=== PATIENT | female | born 1990 | race African-American/Black ===

== ENCOUNTER 2016-11-15 12:46 | Emergency (ER) | payer OTHER ==
[~2016-11-15] VITALS: Ht 172.7 cm; Wt 60.0 kg
[~2016-11-15 12:46] MED LIST: CYCL5TAB PO; NAPR-576 PO
[2016-11-15 12:47] VITALS: BP 137/83; PULSE 72; RESP 20; TEMP 98.2; O2SAT 100
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
[2016-11-15] MEDS ORDERED: IBUP-232 PO (15:29)
[2016-11-15] MEDS ORDERED: CYCL1TAB29 PO (15:29)
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
[2016-11-15] MEDS ORDERED: IBUPROFEN 600 MG TAB PO ONE (15:30)
[2016-11-15] MEDS ORDERED: CYCLOBENZAPRINE HCL 10 MG TAB PO ONE (15:30)
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
== END 2016-11-15 16:00 | disposition home or self-care (01) ==
LOC: NEPD 12:46
DX: M54.9 Dorsalgia, unspecified (principal); M54.2 Cervicalgia; M25.511 Pain in right shoulder; R51 Headache; M25.561 Pain in right knee; V43.62XA Car passenger injured in collision with other type car in traffic accident, initial encounter
CPT/HCPCS: 72072; 99283

== ENCOUNTER 2017-04-06 18:52 | Emergency (ER) | payer OTHER ==
[~2017-04-06 18:52] MED LIST changes: +CYCL10TA PO; -CYCL5TAB PO; +IBUP-232 PO; -NAPR-576 PO
--- NOTE | 2017-04-06 20:49 | PD ---
HPI Chief Complaint Recent complaints of shaking badly and having abdominal pain Date Seen: Apr 06, 2017 Time Seen: 20:30 Travel History International Travel<30 Days: No Contact w/Intl Traveler<30Days: No Known Affected Area: No History of Present Illness HPI Patient is a 26-year-old black female who is now approximately 18 weeks but without any real care except for an ultrasound she had done at a facility outside this hospital here in town. Her EDC by that earlier ultrasound was 09/06/17, an ultrasound done tonight here in [facility] ED is consistent with that with an EDC of 09/09/17, she complains of shaking badly when she was at work today she tried S Shaking and the start hurting in her upper abdomen epigastric area and not down low in the pelvis or below the umbilicus. Denies bleeding or leakage of fluid. Weeks Gestation: 18 Para: 0 : 1 Last Menstrual Period: Apr 06, 2017 History Social History Alcohol Use: No Tobacco Use: No Substance Abuse: No Allergies-Medications (Allergen,Severity, Reaction): Coded Allergies: No Known Allergies (Unverified , 11/15/16) Home Meds Active Scripts Ibuprofen (Ibuprofen) 600 Mg Tab, 600 MG PO Q8H for PAIN, #12 TAB 0 Refills Prov:Ella Cannon MD 11/15/16 Cyclobenzaprine (Flexeril) 10 Mg Tab, 10 MG PO TID for Muscle Spasm, #10 TAB 0 Refills Prov:Ella Cannon MD 11/15/16 Review of Systems General / Constitutional: No: Fever, Weight Gain, Chills, Other Eyes: No: Diploplia, Blurred Vision, Visual changes, Pain, Photophobia HENT: No: Headaches, Vertigo, Lightheadedness Cardiovascular: No: Irregular Rhythm, Chest Pain or Discomfort, Palpitations, Tachycardia, Syncope, Varicosities, Edema, Cyanosis Respiratory: No: Cough, Short of Breath, Other Gastrointestinal: Abdominal Pain, No: Nausea, Vomiting, Diarrhea Genitourinary: No: Decreased Urinary Output, Oliguria Musculoskeletal: No: Limited ROM, Weakness, Cramping, Edema, Pain Skin: No Rash, No Itching, No Dryness, No Lumps, No Change in Pigmentation, No Change in Nails, No Alopecia, No Lesions Neurologic: No: Weakness, Dizziness, Syncope, Focal Abnormalities, Coordination Problem, Headache, Slurred Speech, Seizures Psychiatric: No: Depression, Suicidal Ideations, Homicidal Ideation Endocrine: No: Heat Intolerance, Cold Intolerance, Polydipsia, Polyuria, Other Physical Exam Narrative GENERAL: Well-nourished, well-developed patient. SKIN: Warm and dry. HEAD: Normocephalic and atraumatic. EYES: No scleral icterus. No injection or drainage. ENT: No nasal drainage noted. Mucous membranes pink. Airway patent. NECK: Supple, trachea midline. No JVD. CARDIOVASCULAR: Regular rate and rhythm without murmurs, gallops, or rubs. RESPIRATORY: Breath sounds equal bilaterally. No accessory muscle use. BREASTS: Bilateral exam showed no masses , no retractions, no nipple discharge. ABDOMEN/GI: Abdomen soft, non-tender, bowel sounds present, no rebound, no guarding Gravid to [17-18-] weeks size Fundal Height: [-Below umbilicus] GENITOURINARY: External Genitalia: intact and normal in appearance BUS glands: [-] Cervix: [Posterior-] Dilatation: [Closed-] Effacement: [-thick] Station: [-3] Presentation: [breech-] Membranes: [intact ] FHT's:130s EXTREMITIES: No cyanosis or edema. BACK: Nontender without obvious deformity. No CVA tenderness. NEUROLOGICAL: Awake and alert. Motor and sensory grossly within normal limits. Five out of 5 muscle strength in all muscle groups. Normal speech. Data Data Orders Orders Ob Poc Ultrasound (04/06/17 ) Labs OB ultrasound done at the bedside at night. She is a single intrauterine at 17 weeks 5 day size with an NADIA of 09/10/27 , is adequate amniotic fluid volume ,baby is in a breech presentation and very active, the placenta is anterior and low-lying to the point of being a marginal previa. Normal growth parameters and anatomy scan within normal limits normal cardiac motion MDM Interpretation(s) This patient is 26-year-old black female at 18 weeks who currently is not in the pre- care system did have an ultrasound done earlier in we gave her a due date 09/06/17 and that a NADIA is accurate as tony's ultrasound was consistent with same, likely she does not seem to be shaking at all she is comfortable is a little bit of discomfort when you palpate the abdomen but overall exam was within normal limits. However she also states that she doesn't eat she has no appetite she doesn't want to eat she's not throwing up she just doesn't want Eat, certainly this could cause to be dehydrated and in just lack of food over a period of time could make her feel shaky Plan Planned hydrate the patient with a liter fluid and this continued to have pain may give pain medication at this time Tylenol would be fine here and as an outpatient, she needs to increase her rest if she is uncomfortable of STDs work that we can provide that, she should increase her oral fluids at home use Tylenol as needed heating pad on low on her tummy or her back is fine. She is given the photographs of the baby tony as well as the copy of the report from our ultrasound to take with her appointment I think is April 26 Diagnosis Diagnosis: Primary Impression: 18 weeks gestation of Additional Impressions: Shakiness Abdominal pain during in second trimester Disposition: 01 DISCHARGE HOME Condition: Stable Ramana Denise II, MD Apr 06, 2017 20:49
== END 2017-04-06 21:49 | disposition home or self-care (01) ==
LOC: HOBED 18:52
DX: O26.892 Other specified pregnancy related conditions, second trimester (principal); R10.9 Unspecified abdominal pain; Z3A.18 18 weeks gestation of pregnancy
CPT/HCPCS: 76815

== ENCOUNTER 2017-09-01 21:37 | Inpatient (IN) | payer OTHER ==
[~2017-09-01] VITALS: Ht 172.7 cm; Wt 73.0 kg
[2017-09-01 22:00] VITALS: BP 110/74; PULSE 74
[2017-09-01] MEDS ORDERED: LACTATED RINGER'S 1000 ML INJ 1,000 ML IV PRN (22:17)
[2017-09-01] MEDS: LACTATED RINGER'S 1000 ML INJ 1,000 ML IV SCH (22:17)
--- NOTE | 2017-09-01 22:17 | HHI.PR ---
TALENT ACQUISITION LEAD Note Note HPI HPI Chief Complaint LOF Date Seen: Sep 01, 2017 Time Seen: 22:00 Travel History International Travel<30 Days: No Contact w/Intl Traveler<30Days: No Known Affected Area: No History of Present Illness HPI Pt is a 26y/o G1 @ 39.2wks. She has PNC at [facility]. She presents for evaluation of ?LOF. She reports a large gush of fluid at 9pm and back pain since. She denies VB or ctx. +FM. Weeks Gestation: 39 Para: 0 : 1 History (Limited) History Past Medical History Medical History: Denies Significant Hx Obstetric History Obstetric History 1. current, reports she failed 1hr glucola but never completed 3hr Past Surgical History Surgical History: No Previous Surgery Family History Family History: Negative Social History Alcohol Use: No Tobacco Use: No Substance Abuse: No Allergies-Medications Allergies-Medications (Allergen,Severity, Reaction): Coded Allergies: No Known Allergies (Unverified Adverse Reaction, Unknown, 06/20/17) Narrative Medication PNVs ROS Review of Systems Except as stated in HPI: all other systems reviewed are Neg Physical Exam Physical Exam Narrative General: well developed, well nourished, no acute distress HEENT: normocephalic atraumatic, extraocular movements intact, neck supple Abdomen: soft, gravid, nontender, nondistended Uterus: fundus term Extremities: full range of motion Skin: normal coloration, no rashes, no suspicious skin lesions noted Neurologic: cranial nerves 2-12 grossly intact, normal muscle tone, normal gait Psychiatric: normal mood and affect, appropriate FHTs: 13-s, +accels, no decels, moderate variability, reactive [place]: irregular ctx Cvx: 3/100/-2, amnisure + Data Data Data Vital Signs Reviewed: Yes Orders Orders Vital Signs (Adult) .ON ADMISSION (09/01/17 22:00) ^ Labor Status (09/01/17 22:00) ^ Non Stress Test (09/01/17 22:00) Pamg-1 Test .ONCE (09/01/17 22:00) Group B Strep: Positive MDM MDM Plan 26y/o G1 @ 39.2wks with ROM. -- admit to L&D -- pitocin augmentation -- CEFM, CLD, epidural/hoyos PRN -- PCN for GBS+ Diagnosis Diagnosis: Primary Impression: 39 weeks gestation of Additional Impressions: Leakage, amniotic fluid GBS (group B Streptococcus carrier), +RV culture, currently Yoanna Mendoza MD Sep 01, 2017 22:17 Yoanna Mendoza MD Sep 01, 2017 22:17
[2017-09-01] MEDS ORDERED: LIDOCAINE HCL 1% 50 ML VIAL I-DERMAL PRN (22:30)
[2017-09-01] MEDS ORDERED: SODIUM CHLORID 0.9% 500 ML INJ 500 ML IV PRN (22:30)
[2017-09-01] MEDS ORDERED: MINERAL OIL 10 ML VIAL TOPICAL PRN (22:30)
[2017-09-01] MEDS ORDERED: OXYTOCIN 30 UNITS-500ML PREMIX 500 ML IV PRN (22:30)
[2017-09-01] MEDS ORDERED: LIDOCAINE HCL 1% 50 ML VIAL INFIL PRN (22:30)
[2017-09-01] MEDS ORDERED: ONDANSETRON HCL 4 MG/2 ML VIAL IV PUSH PRN (22:30)
[2017-09-01] MEDS ORDERED: OXYTOCIN 30 UNITS-500ML PREMIX 500 ML IV ONE (22:30)
[2017-09-01] MEDS ORDERED: CITRIC ACID-SODIUM CITRATE LIQ 30 ML UDC PO SCH (22:30)
[2017-09-01] MEDS ORDERED: SODIUM CHLOR 0.9% 1000 ML INJ 1,000 ML IV PRN (22:37)
[2017-09-01] MEDS ORDERED: PENICILLIN G POTASSIUM INJ 5,000,000 UNITS in SODIUM CHLORIDE 0.9% INJ 100 ML IV ONE (23:00)
[2017-09-01 23:13] VITALS: BP 116/70; PULSE 79
[2017-09-01 23:37] VITALS: BP 118/73; PULSE 71
[2017-09-01 23:41] LABS: AUTOMATED NEUTROPHIL # 8.9 TH/MM3 (1.8-7.7); BASOPHIL % 0.4 % (0.0-2.0); EOSINOPHIL # 0.1 TH/MM3 (0-0.4); EOSINOPHIL % 0.9 % (0.0-4.0); HEMOGLOBIN 11.6 GM/DL (11.6-15.3); LYMPH % 19.6 % (9.0-44.0); LYMPHOCYTE # 2.5 TH/MM3 (1.0-4.8); MEAN CELL VOLUME 99.5 FL (80.0-100.0); MEAN CORPUSCULAR HGB CONC 34.2 % (32.0-36.0); MONO % 9.5 % (0.0-8.0); MONOCYTE # 1.2 TH/MM3 (0-0.9); NEUT % 69.6 % (16.0-70.0); PLATELET COUNT 278 TH/MM3 (150-450); RED BLOOD COUNT 3.42 MIL/MM3 (4.00-5.30); RED CELL DISTRIBUTION WIDTH 12.2 % (11.6-17.2); WHITE BLOOD COUNT 12.8 TH/MM3 (4.0-11.0)
[2017-09-01 23:42] LABS: BILIRUBIN, URINE NEG (NEG); BLOOD, URINE NEG (NEG); GLUCOSE,URINE NEG (NEG); KETONE, URINE NEG (NEG); MUCUS URINE FEW /lpf (OCC); NITRITE,URINE NEG (NEG); RENAL EPITHELIAL CELLS <1 /hpf; SQUAMOUS EPITHELIAL CELL URINE 2 /hpf (0-5); TRANSITIONAL EPI CELLS, URINE <1 /hpf; URINE COLOR YELLOW (YELLW/STRAW); URINE LEUKOCYTE ESTERASE NEG (NEG)
[2017-09-01] MEDS ORDERED: PRENTAB7 (23:46)
[2017-09-02] VITALS (36 sets, daily range): BP systolic 100–125; BP diastolic 59–91; PULSE 58–81; RESP 16–20; TEMP 97.6–98.4; O2SAT 99
[2017-09-02] MEDS ORDERED: PENICILLIN G POTASSIUM INJ 2,500,000 UNITS in SODIUM CHLORIDE 0.9% INJ 100 ML IV SCH (03:00)
[2017-09-02] MEDS: ceFAZolin 1,000 MG/NS 100 ML IV SCH ×4 (07:18→11:00)
[2017-09-02] MEDS: LACTATED RINGER'S 1000 ML INJ 1,000 ML IV SCH (07:18)
[2017-09-02] MEDS ORDERED: PROMETHAZINE INJ 25 MG/ML VIAL IM ONE (07:30)
--- NOTE | 2017-09-02 08:45 | PD.LABORPN ---
Subjective Subjective 26y/o G1 @ 39/3wks followed by CFW who p/w evaluation for LOF w/report of a large gush of fluid at 9pm and back pain since. FHT w/BL 130, reactive, moderate and no decels. Objective Vital Signs Vital Signs Date Time Temp Pulse Resp B/P (MAP) Pulse Ox O2 Delivery O2 Flow Rate FiO2 09/02/17 08:11 72 107/83 (91) 09/02/17 08:10 16 09/02/17 07:14 98.3 18 09/02/17 07:14 81 125/91 (102) 09/02/17 06:30 18 09/02/17 05:21 97.8 16 09/02/17 05:18 64 107/73 (84) 09/02/17 05:08 16 09/02/17 04:36 98.0 09/02/17 04:35 18 09/02/17 04:14 16 09/02/17 04:00 97.8 09/02/17 03:34 16 09/02/17 03:13 18 09/02/17 02:45 16 09/02/17 02:15 16 09/02/17 02:15 98.0 09/02/17 02:02 58 113/67 (82) 09/02/17 01:45 16 09/02/17 01:15 16 09/02/17 01:13 65 108/66 (80) Objective Pelvic Exam: Cervix: open Dilatation: 5 Effacement: 80 Station: -2 Presentation: vtx Membranes: ruptured, but still a bulging bag Uterine Contractions: regular, q2-3mins FHT's: Category: 1 Baseline: 130 Reactive: yes Variability: moderate Decels: absent Weeks Gestation: 39 Assessment/Plan Assessment and Plan 26YO at 39/3 actively laboring w/Cervix 5/80/-2 and FHT BL 130, reactive, moderate, no decels IUP -[place] and monitor -Pitocin titrate per protocol -Pt refusing epidural at this time, but in pain -Refusing amniotomy -Cervical check q2h Pt dw Skip Uriostegui MD R1 Sep 02, 2017 08:45
[2017-09-02] MEDS ORDERED: LIDOCAINE HCL 1% PF 30 ML VIAL ONE (11:41)
[2017-09-02] MEDS ORDERED: ONDANSETRON ODT 4 MG TAB PO PRN (12:30)
[2017-09-02] MEDS ORDERED: BENZOCAINE 20% TOPICAL SPRAY 60 ML CAN TOPICAL PRN (12:30)
[2017-09-02] MEDS ORDERED: OXYTOCIN 30 UNITS-500ML PREMIX 500 ML IV SCH (12:30)
[2017-09-02] MEDS ORDERED: WITCH HAZEL 50%/GLYCERIN 12.5% 40 PAD JAR TOPICAL PRN (12:30)
[2017-09-02] MEDS ORDERED: SODIUM CHLORIDE 0.9% FLUSH 10 ML FLUSH IV FLUSH PRN (12:30)
[2017-09-02] MEDS ORDERED: DOCUSATE SODIUM 50 MG/SENNA 8.6 MG TAB PO PRN (12:30)
--- NOTE | 2017-09-02 12:48 | PD.OB.DELI ---
Weeks gestation: 39 Anesthesia: None Episiotomy: None Vaginal Delivery: Normal, Spontaneous Presentation: Occiput anterior Nuchal Cord: x1 Delayed cord clamping (45 sec): Yes : Male, Single Delivery date: Sep 02, 2017 Delivery time: 11:38 One Minute : 8 Five Minute : 8 Weight: 3493g Placenta: Spontaneous delivery, Intact, 3 vessel cord Laceration: 3 deg (partial 3rd degree tear with part of the external anal schpincter intact), Involving anal sphincter (partial (2/3) tear external anal sphincter) Repair: Chromic interrupted Estimated blood loss: 200cc Additional Information Delivery performed by Dr Higgins and assisted by Dr Denise. Male infant delivered 1138AM with 3rd degree perineal laceration with 2/3 thickness tear of external anal sphincter and right side anterior periurethral full epidermal thickness tear. Pt given local lidocaine injections for hemostasis and pain control. Both lacerations repaired with chromic running; anal sphincter tear secured with four vicryl interrupted sutures. Dr Denise supervised laceration repair while Dr Higgins was primary performer. Skip Higgins MD R1 Sep 02, 2017 12:48
[2017-09-02] MEDS: ACETAMINOPHEN 325 MG TAB PO PRN ×2 (14:25→21:29)
[2017-09-02] MEDS: IBUPROFEN 800 MG TAB PO PRN ×2 (14:25→21:30)
[2017-09-02] MEDS ORDERED: DIPHTH/TETANUS/ACEL PERTUSSIS (BOOSTER) 0.5 ML VIAL/PFS IM ONE (16:00)
[2017-09-02] MEDS ORDERED: MEASLES, MUMPS, RUBELLA VACCINE 0.5 ML VIAL SQ ONE (16:00)
[2017-09-02] MEDS ORDERED: SODIUM CHLORIDE 0.9% FLUSH 10 ML FLUSH IV FLUSH SCH (21:00)
[2017-09-02] MEDS ORDERED: ZOLPIDEM TARTRATE 5 MG TAB PO PRN (21:00)
[2017-09-03] MEDS: oxyCODONE/ACETAMINOPHEN 5 MG/325 MG TAB PO PRN ×3 (00:47→08:13)
[2017-09-03] MEDS: IBUPROFEN 800 MG TAB PO PRN ×2 (04:29→20:10)
[2017-09-03 06:00] VITALS: BP 114/58; PULSE 62; RESP 18; TEMP 98.4; O2SAT 98
[2017-09-03 08:15] VITALS: BP 136/75; PULSE 57; RESP 16; TEMP 97.9
--- NOTE | 2017-09-03 09:40 | HHI.OB ---
Subjective Remarks 26 year old female s/p at 39 wks gestation, PPD 1. AFVSS. Patient reports she is feeling well. Bleeding is decreasing and pain is well- controlled. She is formula feeding and bonding well with baby. Ambulating without difficulties. She is tolerating a diet without nausea or vomiting. She has not had a bowel movement. She has passed gas. Denies chest pain, dysuria, shortness of breath, or calf pain. Objective Vitals/I&O Vital Signs Date Time Temp Pulse Resp B/P (MAP) Pulse Ox O2 Delivery O2 Flow Rate FiO2 09/03/17 06:00 98.4 62 18 114/58 (76) 98 09/02/17 20:00 67 18 100/59 (73) 09/02/17 20:00 98.4 99 09/02/17 13:15 98.4 71 20 111/60 (77) 09/02/17 12:55 66 116/69 (85) 09/02/17 12:54 18 09/02/17 12:39 98.4 09/02/17 12:39 18 09/02/17 12:30 74 117/59 (78) 09/02/17 12:30 18 09/02/17 12:15 75 114/67 (83) 09/02/17 12:11 18 09/02/17 12:10 81 116/73 (87) 09/02/17 11:04 67 113/79 (90) 09/02/17 11:03 97.6 18 09/02/17 10:13 74 116/84 (95) 09/02/17 10:12 18 Objective Remarks GENERAL: Well-nourished, well-developed patient. CARDIOVASCULAR: Regular rate and rhythm without murmurs, gallops, or rubs. RESPIRATORY: Breath sounds equal bilaterally. No accessory muscle use. ABDOMEN/GI: Abdomen soft, non-tender. Fundus: Firm, non-tender at umbilicus. GENITOURINARY: Light to moderate bleeding. EXTREMITIES: No cyanosis or edema, non-tender, without signs of DVT. Medications and IVs Current Medications Medications (Trade) Dose Ordered Sig/Joy Route Start Time Stop Time Status Last Admin (Xylocaine 1% Inj (50 ml)) 0.1 ml UNSCH X1 PRN I-DERMAL 09/01/17 22:30 09/04/17 22:29 (Bicitra Liq) 30 ml [employer]EVERAGE PO 09/01/17 22:30 09/05/17 22:29 (fentaNYL INJ) 50 mcg Q1H PRN IV PUSH 09/01/17 22:30 (fentaNYL INJ) 100 mcg Q1H PRN IV PUSH 09/01/17 22:30 09/02/17 10:11 (Xylocaine 1% Inj (50 ml)) 10 ml UNSCH X1 PRN INFIL 09/01/17 22:30 09/03/17 22:29 (Muri-Lube Oil) 10 ml UNSCH PRN TOPICAL 09/01/17 22:30 Cefazolin Sodium 1000 mg/Sodium Chloride 100 ml @ 200 mls/hr Q4H IV 09/02/17 07:00 09/02/17 07:18 (NS Flush) 2 ml BID IV FLUSH 09/02/17 21:00 (NS Flush) 2 ml UNSCH PRN IV FLUSH 09/02/17 12:30 (Tylenol) 650 mg Q4H PRN PO 09/02/17 12:30 09/02/17 21:29 (Motrin) 800 mg Q8H PRN PO 09/02/17 12:30 09/03/17 04:29 (Percocet 5-325 Mg) 1 tab Q4H PRN PO 09/02/17 12:30 09/03/17 08:13 (Americaine 20% Top Spr) 1 spray Q4H PRN TOPICAL 09/02/17 12:30 09/03/17 00:46 (Tucks Pads) 1 applic QID PRN TOPICAL 09/02/17 12:30 09/03/17 00:46 (Ghazal-Colace) 2 tab Q12H PRN PO 09/02/17 12:30 09/03/17 00:46 (Ambien) 5 mg HS PRN PO 09/02/17 21:00 (Mag-Al Plus Susp Liq) 15 ml Q8H PRN PO 09/02/17 12:30 (Zofran Odt) 4 mg Q6H PRN PO 09/02/17 12:30 Assessment/Plan Problem List: (1) Normal vaginal delivery ICD Codes: O80 - Encounter for full-term uncomplicated delivery Assessment and Plan 26 yo female s/p , PPD 1 - AFVSS - Continue routine care - Motrin PRN pain - Encourage OOB - Pelvic rest x 6 wks - Contraception: exclusive WSW, considering OCP for menstrual regulation, will f /u - Anticipate D/C 09/04 Margarito Govea MD R2 Sep 03, 2017 09:40
[2017-09-03] MEDS ORDERED: IBUP1TAB7 PO (09:42)
--- NOTE | 2017-09-03 09:42 | HHI.DCPOC ---
Discharge Care Plan Diagnosis: (1) Normal vaginal delivery Report Symptoms to Your Doctor -Temperature above 100.5 degrees -Redness, of incision or excessive or foul smelling drainage -Unusual pain or calf pain -Increased vaginal bleeding -Painful or difficulty urinating -Feelings of extreme sadness or anxiety after 2 weeks Goals to Promote Your Health * To prevent worsening of your condition and complications * To maintain your health at the optimal level Directions to Meet Your Goals Take your medications as prescribed Follow your dietary instruction Follow activity as directed Ensure plenty of rest for recovery Drink fluids for hydration Keep your appointments as scheduled Take your immunizations and boosters as scheduled If your symptoms worsen call your PCP, if no PCP go to Urgent Care Center or Emergency Room Smoking is Dangerous to Your Health. Avoid second hand smoke Call the 24-hour crisis hotline for domestic abuse at Margarito Govea MD R2 Sep 03, 2017 09:42
[2017-09-03 12:19] VITALS: BP 110/68; PULSE 65; O2SAT 99
[2017-09-03] MEDS ORDERED: CITRIC ACID-SODIUM CITRATE LIQ 30 ML UDC PO ONE (13:15)
[2017-09-03] MEDS: ALUMINUM/MAGNESIUM/SIMETH 30 ML CUP PO PRN (16:09)
--- NOTE | 2017-09-03 16:32 | EKG ---
Date Performed: 09/03/2017 Time Performed: 12:38:51 PTAGE: 26 years EKG: Sinus rhythm NORMAL ECG NO PREVIOUS TRACING DOCTOR: Radha Suarez Interpretating Date/Time 09/03/2017 16:30:25
[2017-09-03 20:00] VITALS: BP 109/69; PULSE 70; RESP 18; TEMP 98.5; O2SAT 96
[2017-09-04 00:12] VITALS: BP 109/71; PULSE 62; RESP 16; TEMP 98.1; O2SAT 100
[2017-09-04] MEDS: ALUMINUM/MAGNESIUM/SIMETH 30 ML CUP PO PRN ×2 (00:28→12:36)
[2017-09-04 03:15] VITALS: BP 114/71; PULSE 66; RESP 16; O2SAT 100
[2017-09-04] MEDS ORDERED: ONDA4TAB7 PO (07:56)
[2017-09-04] MEDS ORDERED: NORE0.354 PO (07:56)
[2017-09-04] MEDS ORDERED: PROMETHAZINE HCL 25 MG TAB PO ONE (08:00)
--- NOTE | 2017-09-04 08:01 | HHI.OB ---
Subjective Remarks 26 year old female s/p at 39 wks gestation, PPD 2. AFVSS. Patient reports she is feeling well. Bleeding is decreasing and pain is well- controlled. She is formula feeding and bonding well with baby. Ambulating without difficulties. She is tolerating a diet but has had some nausea and vomiting incompletely relieved by Zofran. She has not had a bowel movement. She has passed gas. Still has some chest/breast pain and shortness of breath. Yesterday noted same symptoms. Objective Vitals/I&O Vital Signs Date Time Temp Pulse Resp B/P (MAP) Pulse Ox O2 Delivery O2 Flow Rate FiO2 09/04/17 03:15 66 16 114/71 (85) 100 09/04/17 00:12 98.1 62 16 109/71 (84) 100 09/03/17 20:00 98.5 70 18 109/69 (82) 96 09/03/17 12:19 65 110/68 (82) 99 09/03/17 08:15 97.9 57 16 136/75 (95) Objective Remarks GENERAL: Well-nourished, well-developed patient. CARDIOVASCULAR: Regular rate and rhythm without murmurs, gallops, or rubs. RESPIRATORY: Breath sounds equal bilaterally. No accessory muscle use. ABDOMEN/GI: Abdomen soft, non-tender. Fundus: Firm, moderately tender at 2 cm below umbilicus. GENITOURINARY: Light to moderate bleeding. EXTREMITIES: No cyanosis or edema, non-tender, without signs of DVT. Medications and IVs Current Medications Medications (Trade) Dose Ordered Sig/Joy Route Start Time Stop Time Status Last Admin (Xylocaine 1% Inj (50 ml)) 0.1 ml UNSCH X1 PRN I-DERMAL 09/01/17 22:30 09/04/17 22:29 (Bicitra Liq) 30 ml [employer] PO 09/01/17 22:30 09/05/17 22:29 (fentaNYL INJ) 50 mcg Q1H PRN IV PUSH 09/01/17 22:30 (fentaNYL INJ) 100 mcg Q1H PRN IV PUSH 09/01/17 22:30 09/02/17 10:11 (Muri-Lube Oil) 10 ml UNSCH PRN TOPICAL 09/01/17 22:30 Cefazolin Sodium 1000 mg/Sodium Chloride 100 ml @ 200 mls/hr Q4H IV 09/02/17 07:00 09/02/17 07:18 (NS Flush) 2 ml BID IV FLUSH 09/02/17 21:00 (NS Flush) 2 ml UNSCH PRN IV FLUSH 09/02/17 12:30 (Tylenol) 650 mg Q4H PRN PO 09/02/17 12:30 09/02/17 21:29 (Motrin) 800 mg Q8H PRN PO 09/02/17 12:30 09/03/17 20:10 (Percocet 5-325 Mg) 1 tab Q4H PRN PO 09/02/17 12:30 09/03/17 08:13 (Americaine 20% Top Spr) 1 spray Q4H PRN TOPICAL 09/02/17 12:30 09/03/17 00:46 (Tucks Pads) 1 applic QID PRN TOPICAL 09/02/17 12:30 09/03/17 00:46 (Ghazal-Colace) 2 tab Q12H PRN PO 09/02/17 12:30 09/03/17 00:46 (Ambien) 5 mg HS PRN PO 09/02/17 21:00 (Mag-Al Plus Susp Liq) 15 ml Q8H PRN PO 09/02/17 12:30 09/04/17 00:28 (Zofran Odt) 4 mg Q6H PRN PO 09/02/17 12:30 09/03/17 10:51 (Phenergan) 12.5 mg ONCE ONCE PO 09/04/17 08:00 09/04/17 08:01 09/04/17 07:55 Assessment/Plan Problem List: (1) Normal vaginal delivery ICD Codes: O80 - Encounter for full-term uncomplicated delivery Assessment and Plan 26 yo female s/p , PPD 2 - AFVSS - Continue routine care - Motrin PRN pain - Chest pain: EKG normal, not reproducible with applied pressure. Possibly related to breast engorgement from not . Advised ice packs and tight fitting bra. - N/V: Phenergan 12.5 mg PO x1, may repeat dose as needed. Continue Zofran PRN as routinely ordered. - Encourage OOB - Pelvic rest x 6 wks - Contraception: generally exclusive WSW, but requesting OCP for period regulation. Will Rx norethindrone. - Anticipate D/C today PM Margarito Govea MD R2 Sep 04, 2017 08:01
[2017-09-04 09:25] VITALS: BP 109/65; PULSE 62; RESP 16; TEMP 98.8
[2017-09-04] MEDS ORDERED: medroxyPROGESTERone ACETATE SUSP 150 MG/ML SYRINGE IM ONE (11:00)
--- NOTE | 2017-09-04 12:02 | PD.CIRC ---
Circumcision Procedure Note Procedure Date: Sep 04, 2017 Procedure Time: 12:01 Procedure: Circumcision Pre-procedure diagnosis: circumcision Post-procedure diagnosis: circumcision Informed Consent: The risks, benefits, indications, potential complications, and alternatives were explained to the patient/family and informed consent obtained. The baby was brought to the procedure room where a time-out was done to ID the patient and the procedure. Performing Physician: Amador Herrera Anesthesia used: 1% lidocaine injected Type of block: dorsal penile block Device used: Gomco 1.3 Description: The baby was prepped and draped in a sterile fashion. The procedure followed standard technique. The baby tolerated the procedure well without complication. Findings: normal male genitalia Estimated blood loss: minimal Specimen: No Amador Herrera Jr., MD Sep 04, 2017 12:02
== END 2017-09-04 15:18 | disposition home or self-care (01) | DRG 775 ==
LOC: HOBED 21:37 → H2EB 22:18 → H1EA 09-02 13:01
PROVIDERS: ADMIT Obstetrics & Gynecology; ATTEND Obstetrics & Gynecology
PROC: 0DQR0ZZ Repair Anal Sphincter, Open Approach (ICD-10-PCS; principal; 2017-09-02)
PROC: 10E0XZZ Delivery of Products of Conception, External Approach (ICD-10-PCS; 2017-09-02)
DX: O99.824 Streptococcus B carrier state complicating childbirth (principal); O69.81X0 Labor and delivery complicated by cord around neck, without compression, not applicable or unspecified; Z37.0 Single live birth; Z3A.39 39 weeks gestation of pregnancy; O70.20 Third degree perineal laceration during delivery, unspecified; R11.2 Nausea with vomiting, unspecified
CPT/HCPCS: 80307; 81001; 84112; 85025; 85461; 86850; 86900; 86901; 90384; 90715; 93005; J0690; J1050; J2405; J2540; J2550; J2590; J2790; J3010; J7120; Q0169

== ENCOUNTER 2017-09-07 16:00 | Observation (INO) | payer OTHER ==
[~2017-09-07] VITALS: Ht 172.7 cm; Wt 64.8 kg
[~2017-09-07 16:00] MED LIST changes: -CYCL10TA PO; -IBUP-232 PO; +IBUP1TAB7 PO; +NORE0.354 PO; +ONDA4TAB7 PO; +PRENTAB7
[2017-09-07 16:21] VITALS: BP 126/60; PULSE 87; RESP 16; TEMP 98.8; O2SAT 98
--- NOTE | 2017-09-07 17:37 | PD ---
HPI Chief Complaint: GI Complaint Time Seen by Provider: 17:37 Travel History International Travel<30 days: No Contact w/Intl Traveler<30days: No Traveled to known affect area: No History of Present Illness HPI 26-year-old female came to the emergency room with history of intractable nausea and vomiting that has been going on since the of this month. Patient had a normal vaginal delivery on the and says that the nausea and vomiting pretty much started since then. Patient was in the hospital postdelivery for 2 days. The first day the vomiting was not as intense but the second day onwards she has been unable to keep any fluid/water or solids down. She was discharged home on Zofran as per the patient that has not been helpful. Delivery was uneventful. Patient was a GBS positive but had received prophylactic antibiotic. Patient is not breast-feeding currently. She was also discharged home on Motrin but she took the last dose 3 days ago. She has been having vaginal bleeding which is getting better. No history of fever or chills. No history of diarrhea. She does complain of some epigastric pain that gets worse when she is vomiting. No radiation of the pain. This is her first child. Vital signs were stable in triage. [facility] Past Medical History Narrative Medical List of her past medical, surgical, social and family history is reviewed from the nursing note. Social History Alcohol Use: No Tobacco Use: No Substance Use: No Allergies-Medications (Allergen,Severity, Reaction): Coded Allergies: Penicillins (Verified Allergy, Mild, 09/07/17) Comments List of her allergies reviewed from the nursing note. Reported Meds & Prescriptions Reported Meds & Active Scripts Active Macrobid (Nitrofurantoin Monoh/Nitrofur Macro) 100 Mg Cap 100 Mg PO BID 7 Days Phenergan Supp (Promethazine HCl) 12.5 Mg Supp 12.5 Mg RECTAL Q6H PRN Omeprazole 20 Mg Tab 20 Mg PO DAILY Norethindrone 35 (Norethindrone) 0.35 Mg Tab 1 Tab PO DAILY Ondansetron Odt 4 Mg Tab 4 Mg PO Q6H PRN Ibuprofen 800 Mg Tab 800 Mg PO Q8H PRN Reported Vitamins Tablet (Pnv No.95/Ferrous Fum/Folic AC) 28 Mg Iron-800 Mcg Tablet Narrative Medication List of her home medications reviewed from the nursing note. Review of Systems Except as stated in HPI: all other systems reviewed are Neg Gastrointestinal: Positive: Nausea, Vomiting, Abdominal Pain Physical Exam Narrative GENERAL: Awake, alert, moderate distress SKIN: Focused skin assessment warm/dry. HEAD: Atraumatic. Normocephalic. EYES: Pupils equal and round. No scleral icterus. No injection or drainage. ENT: No nasal bleeding or discharge. Dry mucous membrane, coated tongue. NECK: Trachea midline. No JVD. CARDIOVASCULAR: Regular rate and rhythm. No murmur appreciated. RESPIRATORY: No accessory muscle use. Clear to auscultation. Breath sounds equal bilaterally. GASTROINTESTINAL: Abdomen soft, non-tender, nondistended. Hepatic and splenic margins not palpable. MUSCULOSKELETAL: No obvious deformities. No clubbing. No cyanosis. No edema. NEUROLOGICAL: Awake and alert. No obvious cranial nerve deficits. Motor grossly within normal limits. Normal speech. PSYCHIATRIC: Appropriate mood and affect; insight and judgment normal. Data Data Last Documented VS Vital Signs Date Time Temp Pulse Resp B/P (MAP) Pulse Ox O2 Delivery O2 Flow Rate FiO2 09/07/17 19:58 99.4 90 16 143/56 (85) 99 Room Air Orders Orders Complete Blood Count With Diff (09/07/17 18:13) Comprehensive Metabolic Panel (09/07/17 18:13) Lipase (09/07/17 18:13) Urinalysis - C+S If Indicated (09/07/17 18:13) Iv Access Insert/Monitor (09/07/17 18:13) Ecg Monitoring (09/07/17 18:13) Oximetry (09/07/17 18:13) Ondansetron Inj (Zofran Inj) (09/07/17 18:15) Sodium Chlor 0.9% 1000 Ml Inj (Ns 1000 M (09/07/17 18:13) Sodium Chloride 0.9% Flush (Ns Flush) (09/07/17 18:15) Sodium Chlor 0.9% 1000 Ml Inj (Ns 1000 M (09/07/17 18:15) Urine Culture (09/07/17 18:30) Sodium Chlor 0.9% 1000 Ml Inj (Ns 1000 M (09/07/17 19:15) Nitrofurantoin Monohyd Macrocr (Macrobid (09/07/17 19:15) Potassium Chloride (Kcl) (09/07/17 19:45) Ed Discharge Order (09/07/17 19:44) Ct Abd/Pel W Iv Contrast(Rout) (09/07/17 ) Iohexol 350 Inj (Omnipaque 350 Inj) (09/07/17 20:30) Admit Order (Ed Use Only) (09/07/17 20:57) Labs Laboratory Tests Test 09/07/17 18:20 09/07/17 18:30 White Blood Count 14.2 TH/MM3 Red Blood Count 3.35 MIL/MM3 Hemoglobin 11.2 GM/DL Hematocrit 33.3 % Mean Corpuscular Volume 99.3 FL Mean Corpuscular Hemoglobin 33.4 PG Mean Corpuscular Hemoglobin Concent 33.7 % Red Cell Distribution Width 12.6 % Platelet Count 427 TH/MM3 Mean Platelet Volume 9.2 FL Neutrophils (%) (Auto) 79.5 % Lymphocytes (%) (Auto) 13.6 % Monocytes (%) (Auto) 5.5 % Eosinophils (%) (Auto) 1.2 % Basophils (%) (Auto) 0.2 % Neutrophils # (Auto) 11.2 TH/MM3 Lymphocytes # (Auto) 1.9 TH/MM3 Monocytes # (Auto) 0.8 TH/MM3 Eosinophils # (Auto) 0.2 TH/MM3 Basophils # (Auto) 0.0 TH/MM3 CBC Comment DIFF FINAL Differential Comment Blood Urea Nitrogen 9 MG/DL Creatinine 0.69 MG/DL Random Glucose 74 MG/DL Total Protein 7.6 GM/DL Albumin 3.1 GM/DL Calcium Level 9.0 MG/DL Alkaline Phosphatase 119 U/L Aspartate Amino Transf (AST/SGOT) 24 U/L Alanine Aminotransferase (ALT/SGPT) 29 U/L Total Bilirubin 0.4 MG/DL Sodium Level 141 MEQ/L Potassium Level 3.2 MEQ/L Chloride Level 104 MEQ/L Carbon Dioxide Level 26.4 MEQ/L Anion Gap 11 MEQ/L Estimat Glomerular Filtration Rate 125 ML/MIN Lipase 223 U/L Urine Color YELLOW Urine Turbidity HAZY Urine pH 6.0 Urine Specific [place] 1.036 Urine Protein 100 mg/dL Urine Glucose (UA) NEG mg/dL Urine Ketones 150 mg/dL Urine Occult Blood LARGE Urine Nitrite NEG Urine Bilirubin NEG Urine Urobilinogen 4.0 MG/DL Urine Leukocyte Esterase NEG Urine RBC 25 /hpf Urine WBC 12 /hpf Urine Squamous Epithelial Cells 7 /hpf Urine Amorphous Sediment RARE Urine Bacteria RARE /hpf Urine Mucus MANY /lpf Microscopic Urinalysis Comment CULTURE INDICATED MDM Medical Decision Making Medical Screen Exam Complete: Yes Emergency Medical Condition: Yes Medical Record Reviewed: Yes Differential Diagnosis Acute gastritis, intractable vomiting, electrolyte abnormality, dehydration, UTI Narrative Course 7:41 PM blood test results are back. Patient has some leukocytosis and slight left shift. CMP suggestive of mild hypokalemia. UA suggestive of UTI and significant ketonuria. Patient is getting total of 3 L of IV fluid bolus. I have given her IV Zofran as well as p.o. Macrobid and p.o. potassium replacement. Patient has not had any more vomiting episodes. Once the fluid finishes patient will be discharged home on antibiotic prescription and prescription for Phenergan suppository. 8:41 PM I was told by the nurse soon after I came out of the room and answered all her questions to the best of her ability that patient vomited. Both patient and her mother have been extremely concerned about the reason for vomiting in spite of my diagnosis. I ordered a CT scan and just as I had diagnosed the patient has gastritis with mucosal wall thickening of the stomach. I have ordered for Reglan. At this point I would like to admit this patient for intractable vomiting. Critical Care Narrative Aggregate critical care time was 30 minutes. Time to perform other separately billable procedures was not included in the critical care time. My time did not include minutes spent treating any other patients simultaneously or on activities that did not directly contribute to the patient's treatment. The services I provided to this patient were to treat and/or prevent clinically significant deterioration that could result in: Severe dehydration, fluid resuscitation I provided critical care services requiring my management, as noted below: Chart data review, documentation time, medication orders and management, vital sign assessments/reviewing monitor data, ordering and reviewing lab tests, ordering and interpreting/reviewing x-rays and diagnostic studies, care of the patient and discussion of the patient with the admitting physicians. Procedures EKG Prior to Arrival: No Diagnosis Primary Impression: Intractable vomiting Qualified Codes: R11.2 - Nausea with vomiting, unspecified Additional Impressions: Acute gastritis Qualified Codes: K29.00 - Acute gastritis without bleeding Ketonuria Dehydration UTI (urinary tract infection) Qualified Codes: N39.0 - Urinary tract infection, site not specified Admitting Information Admitting Physician Requests: Observation Referrals: [facility] 2 days Additional Instructions: Return to the emergency room if condition worsens or any other new concerns. Otherwise follow-up with your primary care. If you do not have a primary care physician to follow-up with he can go to [facility] whose address has been provided to you on this discharge instruction. Take the medication as per the prescription direction. Drink lots of fluid to stay hydrated. Med/Other Pt SpecificInfo: Prescription(s) given Scripts Nitrofurantoin Monohydrate Macrocrystals (Macrobid) 100 Mg Cap 100 MG PO BID for Infection for 7 Days, #14 CAP 0 Refills Prov: Thomas Moreira MD 09/07/17 Promethazine Supp (Phenergan Supp) 12.5 Mg Supp 12.5 MG RECTAL Q6H Y for NAUSEA OR VOMITING, #15 SUPP 0 Refills Prov: Thomas Moreira MD 09/07/17 Omeprazole (Omeprazole) 20 Mg Tab 20 MG PO DAILY, #30 TAB 0 Refills Prov: Thomas Moreira MD 09/07/17 Disposition: 01 DISCHARGE HOME Condition: Stable Thomas Moreira MD Sep 07, 2017 17:37
[2017-09-07] MEDS ORDERED: SODIUM CHLOR 0.9% 1000 ML INJ 1,000 ML IV SCH (18:13)
[2017-09-07] MEDS ORDERED: ONDANSETRON HCL 4 MG/2 ML VIAL IVP ONE (18:15)
[2017-09-07] MEDS ORDERED: SODIUM CHLORIDE 0.9% FLUSH 10 ML FLUSH IV FLUSH PRN ×2 (18:15→22:45)
[2017-09-07] MEDS ORDERED: SODIUM CHLOR 0.9% 1000 ML INJ 1,000 ML IV ONE ×2 (18:15→19:15)
[2017-09-07 18:29] VITALS: O2SAT 99
[2017-09-07 18:59] LABS: AUTOMATED NEUTROPHIL # 11.2 TH/MM3 (1.8-7.7); BASOPHIL % 0.2 % (0.0-2.0); EOSINOPHIL # 0.2 TH/MM3 (0-0.4); EOSINOPHIL % 1.2 % (0.0-4.0); HEMATOCRIT 33.3 % (35.0-46.0); HEMOGLOBIN 11.2 GM/DL (11.6-15.3); LYMPH % 13.6 % (9.0-44.0); LYMPHOCYTE # 1.9 TH/MM3 (1.0-4.8); MEAN CELL VOLUME 99.3 FL (80.0-100.0); MEAN CORPUSCULAR HEMOGLOBIN 33.4 PG (27.0-34.0); MEAN CORPUSCULAR HGB CONC 33.7 % (32.0-36.0); MEAN PLATELET VOLUME 9.2 FL (7.0-11.0); MONO % 5.5 % (0.0-8.0); MONOCYTE # 0.8 TH/MM3 (0-0.9); NEUT % 79.5 % (16.0-70.0); PLATELET COUNT 427 TH/MM3 (150-450); RED BLOOD COUNT 3.35 MIL/MM3 (4.00-5.30); RED CELL DISTRIBUTION WIDTH 12.6 % (11.6-17.2); WHITE BLOOD COUNT 14.2 TH/MM3 (4.0-11.0)
[2017-09-07 19:00] LABS: AMORPHOUS SEDIMENT, URINE RARE; BACTERIA, URINE RARE /hpf; BILIRUBIN, URINE NEG (NEG); BLOOD, URINE LARGE (NEG); GLUCOSE,URINE NEG (NEG); KETONE, URINE 150 mg/dL (NEG); MUCUS URINE MANY /lpf (OCC); NITRITE,URINE NEG (NEG); SQUAMOUS EPITHELIAL CELL URINE 7 /hpf (0-5); URINE COLOR YELLOW (YELLW/STRAW); URINE LEUKOCYTE ESTERASE NEG (NEG)
[2017-09-07] MEDS ORDERED: NITROFURANTOIN MONOHYD MACROCR 100 MG CAP PO ONE (19:15)
[2017-09-07 19:22] LABS: ALBUMIN 3.1 GM/DL (3.4-5.0); AST (GOT) 24 U/L (15-37); BICARBONATE 26.4 MEQ/L (21.0-32.0); BLOOD UREA NITROGEN 9 MG/DL (7-18); CHLORIDE 104 MEQ/L (98-107); CREATININE 0.69 MG/DL (0.50-1.00); GLOMERULAR FILTRATION RATE 125 ML/MIN (>89); GLUCOSE,RANDOM 74 MG/DL (74-106); SODIUM (NA) 141 MEQ/L (136-145)
[2017-09-07 19:23] LABS: ALT (GPT) 29 U/L (10-53)
[2017-09-07 19:25] LABS: ALKALINE PHOSPHATASE 119 U/L (45-117); TOTAL BILIRUBIN ADULT 0.4 MG/DL (0.2-1.0); TOTAL PROTEIN 7.6 GM/DL (6.4-8.2)
[2017-09-07] MEDS ORDERED: PROM2SUP RECTAL (19:44)
[2017-09-07] MEDS ORDERED: OMEP20TA93 PO (19:44)
[2017-09-07] MEDS ORDERED: MACR100C2 PO (19:44)
[2017-09-07] MEDS ORDERED: POTASSIUM CHLORIDE 20 MEQ CONTROLLED RELEASE TAB PO ONE (19:45)
[2017-09-07 19:58] VITALS: BP 143/56; PULSE 90; RESP 16; TEMP 99.4; O2SAT 99
[2017-09-07] MEDS ORDERED: IOHEXOL 350 MG/ML 10 ML VIAL (for RAD DIAG) IVCONTRAST ONE (20:30)
--- NOTE | 2017-09-07 20:35 | RADRPT ---
EXAM DATE/TIME: 09/07/2017 20:19 [place] COMPARISON: No previous studies available for comparison. INDICATIONS : Abdomen pain; nausea, post baby delivery on 09/02/17. IV CONTRAST: 100 cc Omnipaque 350 (iohexol) IV ORAL CONTRAST: No oral contrast ingested. RADIATION DOSE: 6.64 CTDIvol (mGy) MEDICAL HISTORY : None SURGICAL HISTORY : None. ENCOUNTER: Initial ACUITY: 1 day PAIN SCALE: 4/10 LOCATION: Bilateral abdomen TECHNIQUE: Volumetric scanning of the abdomen and pelvis was performed. Using automated exposure control and ad justment of the mA and/or kV according to patient size, radiation dose was kept as low as reasonably achievable to obtain optimal diagnostic quality images. DICOM format image data is available electro nically for review and comparison. FINDINGS: LOWER LUNGS: The visualized lower lungs are clear. LIVER: Homogeneous density without lesion. There is no dilation of the biliary tree. No calcified gallston es. SPLEEN: Normal size without lesion. PANCREAS: Within normal limits. KIDNEYS: Normal in size and shape. There is no mass, stone or hydronephrosis. ADRENAL GLANDS: Within normal limits. VASCULAR: There is no aortic aneurysm. BOWEL/MESENTERY: The gastric wall appears to be moderately thickened, particularly in the distal body and antrum regio n. The bowel is otherwise focal unremarkable with no abnormal dilatation or inflammatory changes. ABDOMINAL WALL: Within normal limits. RETROPERITONEUM: There is no lymphadenopathy. BLADDER: No wall thickening or mass. REPRODUCTIVE: uterus. No evidence of adnexal mass or free fluid INGUINAL: There is no lymphadenopathy or hernia. MUSCULOSKELETAL: Within normal limits for patient age. CONCLUSION: Moderate concentric gastric wall thickening, mainly involving distal body and antrum. This may reflec t gastritis, however nonspecific Jaswinder Redmond MD on September 07, 2017 at 20:29 Board Certified Radiologist. This report was verified electronically.
[2017-09-07] MEDS ORDERED: SENNOSIDES 8.6 MG TAB PO PRN (22:45)
[2017-09-07] MEDS ORDERED: ONDANSETRON HCL 4 MG/2 ML VIAL IVP PRN (22:45)
[2017-09-07] MEDS ORDERED: NALOXONE HCL 0.4 MG/ML AMP IV PUSH PRN (22:45)
[2017-09-07] MEDS ORDERED: MAGNESIUM HYDROXIDE SUSP 30 ML CUP PO PRN (22:45)
[2017-09-07] MEDS ORDERED: BISACODYL 10 MG SUPP RECTAL PRN (22:45)
[2017-09-07] MEDS ORDERED: LACTULOSE SYRUP 20 GM/30 ML CUP PO PRN (22:45)
[2017-09-07] MEDS ORDERED: ACETAMINOPHEN 325 MG TAB PO PRN (22:45)
[2017-09-07] MEDS ORDERED: PROCHLORPERAZINE INJ 10 MG/2 ML VIAL IM PRN (22:45)
[2017-09-07] MEDS: SODIUM CHLOR 0.9% 1000 ML INJ 1,000 ML IV SCH (23:18)
[2017-09-07] MEDS ORDERED: MORPHINE SULFATE 2 MG/ML SYRINGE IV PUSH PRN (23:45)
[2017-09-08 00:26] VITALS: BP 101/57; PULSE 71; RESP 16; TEMP 99.6; TEMP 99.8; O2SAT 97
[2017-09-08 04:18] VITALS: BP 115/59; PULSE 65; RESP 16; TEMP 98.9; O2SAT 98
--- NOTE | 2017-09-08 04:51 | HHI.HP ---
[facility] No Primary Care Physician Admission Diagnosis Intractable vomiting, acute gastritis, dehydration Diagnoses: Travel History International Travel<30 Days: No Contact w/Intl Traveler <30 Da: No Traveled to Known Affected Are: No History of Present Illness 26-year-old female who is day 6 from a spontaneous vaginal delivery presents to the emergency department for evaluation of abdominal pain and intractable nausea/vomiting. The patient reports that the abdominal pain started the day her son was born on 09/02/17. She reports the nausea/vomiting started approximately 1 day later. She denies any shortness of breath. No fevers or chills. No diarrhea. Last bowel movement was yesterday and was soft. P.o. challenge in the emergency department yielded multiple episodes of emesis. No chest pain. No fatigue/weakness. Review of Systems Except as stated in HPI: all other systems reviewed are Neg Past Family Social History Past Medical History None Past Surgical History None Reported Medications Reported Meds & Active Scripts Active Macrobid (Nitrofurantoin Monoh/Nitrofur Macro) 100 Mg Cap 100 Mg PO BID 7 Days Phenergan Supp (Promethazine HCl) 12.5 Mg Supp 12.5 Mg RECTAL Q6H PRN Omeprazole 20 Mg Tab 20 Mg PO DAILY Norethindrone 35 (Norethindrone) 0.35 Mg Tab 1 Tab PO DAILY Ondansetron Odt 4 Mg Tab 4 Mg PO Q6H PRN Ibuprofen 800 Mg Tab 800 Mg PO Q8H PRN Reported Vitamins Tablet (Pnv No.95/Ferrous Fum/Folic AC) 28 Mg Iron-800 Mcg Tablet Allergies: Coded Allergies: Penicillins (Verified Allergy, Mild, 09/07/17) Family History Negative for CAD/DM Social History Denies alcohol, tobacco and illicit drugs Physical Exam Vital Signs Vital Signs Date Time Temp Pulse Resp B/P (MAP) Pulse Ox O2 Delivery O2 Flow Rate FiO2 09/08/17 04:18 98.9 65 16 115/59 (77) 98 Room Air 09/08/17 00:26 99.8 71 16 101/57 (72) 97 Room Air 09/07/17 19:58 99.4 90 16 143/56 (85) 99 Room Air 09/07/17 18:29 99 Room Air 09/07/17 16:21 98.8 87 16 126/60 (82) 98 Physical Exam GENERAL: -Malagasy female lying in bed SKIN: No rashes, ecchymoses or lesions. Cool and dry. HEAD: Atraumatic. Normocephalic. No temporal or scalp tenderness. EYES: Pupils equal round and reactive. Extraocular motions intact. No scleral icterus. No injection or drainage. ENT: Nose without bleeding, purulent drainage or septal hematoma. Throat without erythema, tonsillar hypertrophy or exudate. Uvula midline. Airway patent. NECK: Trachea midline. No JVD or lymphadenopathy. Supple, nontender, no meningeal signs. CARDIOVASCULAR: Regular rate and rhythm without murmurs, gallops, or rubs. RESPIRATORY: Clear to auscultation. Breath sounds equal bilaterally. No wheezes , rales, or rhonchi. GASTROINTESTINAL: Abdomen soft, diffusely tender to palpation in the upper quadrant, nondistended. No hepato-splenomegaly, or palpable masses. No guarding. Hypoactive bowel sounds. MUSCULOSKELETAL: Extremities without clubbing, cyanosis, or edema. No joint tenderness, effusion, or edema noted. No calf tenderness. NEUROLOGICAL: Awake and alert. Cranial nerves II through XII intact. Motor and sensory grossly within normal limits. Normal speech. Laboratory Laboratory Tests Test 09/07/17 18:20 09/07/17 18:30 White Blood Count 14.2 Red Blood Count 3.35 Hemoglobin 11.2 Hematocrit 33.3 Mean Corpuscular Volume 99.3 Mean Corpuscular Hemoglobin 33.4 Mean Corpuscular Hemoglobin Concent 33.7 Red Cell Distribution Width 12.6 Platelet Count 427 Mean Platelet Volume 9.2 Neutrophils (%) (Auto) 79.5 Lymphocytes (%) (Auto) 13.6 Monocytes (%) (Auto) 5.5 Eosinophils (%) (Auto) 1.2 Basophils (%) (Auto) 0.2 Neutrophils # (Auto) 11.2 Lymphocytes # (Auto) 1.9 Monocytes # (Auto) 0.8 Eosinophils # (Auto) 0.2 Basophils # (Auto) 0.0 CBC Comment DIFF FINAL Differential Comment Blood Urea Nitrogen 9 Creatinine 0.69 Random Glucose 74 Total Protein 7.6 Albumin 3.1 Calcium Level 9.0 Alkaline Phosphatase 119 Aspartate Amino Transf (AST/SGOT) 24 Alanine Aminotransferase (ALT/SGPT) 29 Total Bilirubin 0.4 Sodium Level 141 Potassium Level 3.2 Chloride Level 104 Carbon Dioxide Level 26.4 Anion Gap 11 Estimat Glomerular Filtration Rate 125 Lipase 223 Urine Color YELLOW Urine Turbidity HAZY Urine pH 6.0 Urine Specific [place] 1.036 Urine Protein 100 Urine Glucose (UA) NEG Urine Ketones 150 Urine Occult Blood LARGE Urine Nitrite NEG Urine Bilirubin NEG Urine Urobilinogen 4.0 Urine Leukocyte Esterase NEG Urine RBC 25 Urine WBC 12 Urine Squamous Epithelial Cells 7 Urine Amorphous Sediment RARE Urine Bacteria RARE Urine Mucus MANY Microscopic Urinalysis Comment CULTURE INDICATED Date/Time Source Procedure Growth Status 09/07/17 18:30 Urine Random Urine Urine Culture Pending Received Result Diagram: 09/07/17181909/07/17 182 Cabrera VTE Risk Assessment Jairrini VTE Risk Assessment: No/Low Risk (score <= 1) Caprini Risk Assessment Model Point Value = 1 Point Value = 2 Point Value = 3 Point Value = 5 Age 41-60 Minor surgery BMI > 25 kg/m2 Swollen legs Varicose veins or History of unexplained or recurrent spontaneous Oral contraceptives or hormone replacement Sepsis (< 1 month) Serious lung disease, including pneumonia (< 1 month) Abnormal pulmonary function Acute myocardial infarction Congestive heart failure (< 1 month) History of inflammatory bowel disease Medical patient at bed rest Age 61-74 Arthroscopic surgery Major open surgery (> 45 min) Laparoscopic surgery (> 45 min) Malignancy Confined to bed (> 72 hours) Immobilizing plaster cast Central venous access Age >= 75 History of VTE Family history of VTE Factor V Leiden Prothrombin [id number] Lupus anticoagulant Anticardiolipin antibodies Elevated serum homocysteine Heparin-induced thrombocytopenia Other congenital or acquired thrombophilia Stroke (< 1 month) Elective arthroplasty Hip, pelvis, or leg fracture Acute spinal cord injury (< 1 month) Prophylaxis Regimen Total Risk Factor Score Risk Level Prophylaxis Regimen 0-1 Low Early ambulation 2 Moderate Order ONE of the following: *Sequential Compression Device (SCD) *Heparin 5000 units SQ BID 3-4 Higher Order ONE of the following medications: *Heparin 5000 units SQ TID *Enoxaparin/Lovenox 40 mg SQ daily (WT < 150 kg, CrCl > 30 mL/min) *Enoxaparin/Lovenox 30 mg SQ daily (WT < 150 kg, CrCl > 10-29 mL/min) *Enoxaparin/Lovenox 30 mg SQ BID (WT < 150 kg, CrCl > 30 mL/min) AND/OR *Sequential Compression Device (SCD) 5 or more Highest Order ONE of the following medications: *Heparin 5000 units SQ TID (Preferred with Epidurals) *Enoxaparin/Lovenox 40 mg SQ daily (WT < 150 kg, CrCl > 30 mL/min) *Enoxaparin/Lovenox 30 mg SQ daily (WT < 150 kg, CrCl > 10-29 mL/min) *Enoxaparin/Lovenox 30 mg SQ BID (WT < 150 kg, CrCl > 30 mL/min) AND *Sequential Compression Device (SCD) Assessment and Plan Assessment and Plan Assessment/plan: 1. Intractable nausea/vomiting/gastritis CT of the abdomen/pelvis significant for moderate concentric gastric wall thickening consistent with gastritis, personally reviewed Morphine for pain Zofran and Compazine Clear liquid diet as tolerated 2. UTI UA consistent with urinary tract infection Culture pending Macrobid 3. Hyperkalemia Potassium 3.2 Status post p.o. supplementation Follow-up BMP FEN Clear liquid diet Electrolytes: as above NS at 100 cc/hr María Saavedra MD Sep 08, 2017 04:51
[2017-09-08 08:18] VITALS: BP 101/62; PULSE 62; RESP 20; TEMP 98.7; O2SAT 98
[2017-09-08] MEDS: SODIUM CHLORIDE 0.9% FLUSH 10 ML FLUSH IV FLUSH SCH ×2 (08:56→20:15)
[2017-09-08] MEDS ORDERED: PANTOPRAZOLE SOD 20 MG DELAYED RELEASE TAB PO SCH (09:00)
[2017-09-08] MEDS ORDERED: NON-FORMULARY DRUG (Omeprazole 20 MG) PO SCH (09:00)
[2017-09-08] MEDS: DOCUSATE SODIUM 50 MG/SENNA 8.6 MG TAB PO SCH ×2 (09:31→20:15)
[2017-09-08] MEDS: SODIUM CHLOR 0.9% 1000 ML INJ 1,000 ML IV SCH ×2 (09:31→14:28)
[2017-09-08] MEDS: NITROFURANTOIN MONOHYD MACROCR 100 MG CAP PO SCH ×2 (09:32→18:00)
--- NOTE | 2017-09-08 09:33 | HHI.PR ---
Subjective Remarks Follow up for gastritis, intractable nausea/vomiting/abdominal pain, UTI. The patient reports feeling slightly better right now. She denies any further episodes of vomiting since her arrival to the ED last night. She does reports diffuse abdominal pain, worse at the epigastric area. She reports low grade fever last night, Tmax 99.8. Denies chills. She did have one episode of diarrhea last night. She denies any dysuria, increased urinary frequency/urgency , or suprapubic pain. She has not yet attempted oral intake except small sips of water. She has no other medical complaints at this time. Objective Vitals Vital Signs Date Time Temp Pulse Resp B/P (MAP) Pulse Ox O2 Delivery O2 Flow Rate FiO2 09/08/17 08:18 98.7 62 20 101/62 (75) 98 09/08/17 04:18 98.9 65 16 115/59 (77) 98 Room Air 09/08/17 00:26 99.8 71 16 101/57 (72) 97 Room Air 09/07/17 19:58 99.4 90 16 143/56 (85) 99 Room Air 09/07/17 18:29 99 Room Air 09/07/17 16:21 98.8 87 16 126/60 (82) 98 I/O 09/07/17 09/07/17 09/07/17 09/08/17 09/08/17 09/08/17 07:00 15:00 23:00 07:00 15:00 23:00 Intake Total 3000 ml Balance 3000 ml Intake IV Total 3000 ml # Voids 1 Result Diagram: 09/07/17 1820 09/07/17 1820 Imaging Last Impressions Abdomen/Pelvis CT 09/07/17 0000 Signed Impressions: Service Date/Time: Thursday, September 07, 2017 20:19 - CONCLUSION: Moderate concentric gastric wall thickening, mainly involving distal body and antrum. This may reflect gastritis, however nonspecific Jaswinder Redmond MD Objective Remarks GENERAL: Well-nourished, well-developed young female patient in [facility]. SKIN: Warm and dry. No rash. HEENT: Normocephalic. Atraumatic. Pupils equal and round. Mucous membranes pink and moist. CARDIOVASCULAR: Regular rate and rhythm. No murmur appreciated. RESPIRATORY: No accessory muscle use. Clear to auscultation. Breath sounds equal bilaterally. GASTROINTESTINAL: Abdomen soft, nondistended, moderate diffuse TTP, worse at epigastric region. Normoactive bowel sounds x4. MUSCULOSKELETAL: No obvious deformities. Extremities without clubbing, cyanosis , or edema. NEUROLOGICAL: Awake and alert. No obvious cranial nerve deficits. Motor grossly within normal limits. Normal speech. PSYCHIATRIC: Appropriate mood and affect; insight and judgment normal. Medications and IVs Current Medications Medications (Trade) Dose Ordered Sig/Joy Route Start Time Stop Time Status Last Admin (Macrobid) 100 mg BIDPC PO 09/08/17 09:00 09/08/17 09:32 Sodium Chloride 1,000 ml @ 100 mls/hr Q10H IV 09/07/17 23:00 09/08/17 09:31 (NS Flush) 2 ml UNSCH PRN IV FLUSH 09/07/17 22:45 (NS Flush) 2 ml BID IV FLUSH 09/08/17 09:00 (Tylenol) 650 mg Q4H PRN PO 09/07/17 22:45 (Zofran Inj) 4 mg Q6H PRN IVP 09/07/17 22:45 09/07/17 23:18 (Narcan Inj) 0.4 mg UNSCH PRN IV PUSH 09/07/17 22:45 (Ghazal-Colace) 1 tab BID PO 09/08/17 09:00 09/08/17 09:31 (Milk Of Magnesia Liq) 30 ml Q12H PRN PO 09/07/17 22:45 (Senokot) 17.2 mg Q12H PRN PO 09/07/17 22:45 (Dulcolax Supp) 10 mg DAILY PRN RECTAL 09/07/17 22:45 (Lactulose Liq) 30 ml DAILY PRN PO 09/07/17 22:45 (Protonix) 20 mg DAILY PO 09/08/17 09:00 09/08/17 09:32 (Compazine Inj) 10 mg Q6H PRN IV PUSH 09/08/17 04:45 (Morphine Inj) 2 mg Q3H PRN IV PUSH 09/07/17 23:45 A/P Assessment and Plan 26-year-old female who is day 6 from a spontaneous vaginal delivery presents to the emergency department for evaluation of abdominal pain and intractable nausea/vomiting. Gastritis: patient presented with intractable nausea/vomiting/abdominal pain. -CT abdomen/pelvis reviewed, significant for moderate concentric gastric wall thickening consistent with gastritis -Continue IV Morphine for pain -Continue antiemetics with IV Compazine (patient did not get relief with zofran) -Supportive treatment with IVF hydration -Clear liquid diet, plan to advance as tolerated, discussed with RN -Symptoms improving, no further vomiting since last night, continue to monitor UTI: UA with large leuks, WBCs, bacteria -await urine culture -continue antibiotics with Macrobid 100mg bidpc Hypokalemia: Potassium 3.2. Likely secondary to recent vomiting. -Given KCl supplementation -Follow-up repeat BMP DVT Prophylaxis: teds/SCDs, encourage ambulation Attending Statement patient was seen and examined today. still with some epigastric pain and nausea/ emesis. continue with PPI/ antiemetics. will consider GI evaluation if no improvement. advance the diet slowly as she tolerates. rest of the assessment and plan as noted above. Fe Louise PA-C Sep 08, 2017 09:33 Alvin Hatch MD Sep 08, 2017 12:02
[2017-09-08 12:27] LABS: AUTOMATED NEUTROPHIL # 6.9 TH/MM3 (1.8-7.7); BASOPHIL # 0.1 TH/MM3 (0-0.2); BASOPHIL % 0.7 % (0.0-2.0); EOSINOPHIL # 0.1 TH/MM3 (0-0.4); EOSINOPHIL % 1.4 % (0.0-4.0); HEMATOCRIT 27.3 % (35.0-46.0); HEMOGLOBIN 9.3 GM/DL (11.6-15.3); LYMPH % 19.4 % (9.0-44.0); LYMPHOCYTE # 1.8 TH/MM3 (1.0-4.8); MEAN CELL VOLUME 100.3 FL (80.0-100.0); MEAN CORPUSCULAR HEMOGLOBIN 34.2 PG (27.0-34.0); MEAN CORPUSCULAR HGB CONC 34.1 % (32.0-36.0); MEAN PLATELET VOLUME 8.8 FL (7.0-11.0); MONOCYTE # 0.5 TH/MM3 (0-0.9); NEUT % 73.5 % (16.0-70.0); PLATELET COUNT 353 TH/MM3 (150-450); RED BLOOD COUNT 2.73 MIL/MM3 (4.00-5.30); RED CELL DISTRIBUTION WIDTH 12.5 % (11.6-17.2); WHITE BLOOD COUNT 9.4 TH/MM3 (4.0-11.0)
[2017-09-08 12:48] LABS: CALCIUM 8.4 MG/DL (8.5-10.1); CREATININE 0.58 MG/DL (0.50-1.00)
[2017-09-08] MEDS ORDERED: POTASSIUM CHLORIDE 20 MEQ CONTROLLED RELEASE TAB PO ONE (14:15)
[2017-09-08] MEDS: PROCHLORPERAZINE INJ 10 MG/2 ML VIAL IV PUSH PRN ×2 (14:40→23:43)
[2017-09-08] MEDS ORDERED: MAGNESIUM SULFATE 1 GM PREMIX 100 ML IV ONE (15:00)
[2017-09-08 16:25] VITALS: BP 120/79; PULSE 55; RESP 17; TEMP 98.1; O2SAT 98
[2017-09-08] MEDS ORDERED: ONDANSETRON HCL 4 MG/2 ML VIAL IV PUSH PRN (18:30)
[2017-09-08] MEDS ORDERED: PANTOPRAZOLE SODIUM 40 MG VIAL IV PUSH SCH (20:00)
[2017-09-08] MEDS: NS + KCL 20 MEQ INJ 1,000 ML IV SCH (20:14)
[2017-09-08 21:25] VITALS: BP 115/56; PULSE 61; RESP 16; TEMP 98.1; O2SAT 99
[2017-09-08 23:40] VITALS: BP 119/56; PULSE 55; RESP 16; TEMP 98.1; O2SAT 100
[2017-09-09 04:37] VITALS: BP 126/75; PULSE 56; RESP 16; TEMP 98.4; O2SAT 97
[2017-09-09] MEDS: NS + KCL 20 MEQ INJ 1,000 ML IV SCH (05:09)
[2017-09-09 07:15] VITALS: BP 138/74; PULSE 50; RESP 18; TEMP 96.4; O2SAT 100
[2017-09-09 07:32] LABS: AUTOMATED NEUTROPHIL # 4.6 TH/MM3 (1.8-7.7); BASOPHIL # 0.1 TH/MM3 (0-0.2); BASOPHIL % 0.9 % (0.0-2.0); EOSINOPHIL # 0.3 TH/MM3 (0-0.4); EOSINOPHIL % 3.8 % (0.0-4.0); HEMATOCRIT 27.3 % (35.0-46.0); HEMOGLOBIN 9.5 GM/DL (11.6-15.3); LYMPH % 32.1 % (9.0-44.0); LYMPHOCYTE # 2.6 TH/MM3 (1.0-4.8); MEAN CELL VOLUME 99.5 FL (80.0-100.0); MEAN CORPUSCULAR HEMOGLOBIN 34.6 PG (27.0-34.0); MEAN CORPUSCULAR HGB CONC 34.7 % (32.0-36.0); MONO % 6.2 % (0.0-8.0); MONOCYTE # 0.5 TH/MM3 (0-0.9); PLATELET COUNT 354 TH/MM3 (150-450); RED BLOOD COUNT 2.75 MIL/MM3 (4.00-5.30); RED CELL DISTRIBUTION WIDTH 12.3 % (11.6-17.2)
--- NOTE | 2017-09-09 07:32 | RADRPT ---
EXAM DATE/TIME: 09/09/2017 07:03 [facility] COMPARISON: No previous studies available for comparison. INDICATIONS : Chest pain and shortness of breath. MEDICAL HISTORY : None. SURGICAL HISTORY : None. ENCOUNTER: Initial ACUITY: 1 day PAIN SCORE: 4/10 LOCATION: Bilateral chest FINDINGS: A single view of the chest demonstrates the lungs to be symmetrically aerated without evidence of mas s, infiltrate or effusion. The cardiomediastinal contours are unremarkable. Osseous structures are intact. CONCLUSION: Normal examination. Sarahi Riley MD on September 09, 2017 at 7:30 Board Certified Radiologist. This report was verified electronically.
[2017-09-09 07:40] LABS: BICARBONATE 23.7 MEQ/L (21.0-32.0); BLOOD UREA NITROGEN 4 MG/DL (7-18); CALCIUM 8.1 MG/DL (8.5-10.1); CHLORIDE 113 MEQ/L (98-107); CREATININE 0.45 MG/DL (0.50-1.00); GLOMERULAR FILTRATION RATE 205 ML/MIN (>89); GLUCOSE,RANDOM 70 MG/DL (74-106); MAGNESIUM 1.7 MG/DL (1.5-2.5); SODIUM (NA) 142 MEQ/L (136-145)
[2017-09-09 07:44] LABS: TROPONIN I LESS THAN 0.02 NG/ML (0.02-0.05)
[2017-09-09] MEDS: SODIUM CHLORIDE 0.9% FLUSH 10 ML FLUSH IV FLUSH SCH (09:00)
[2017-09-09] MEDS: DOCUSATE SODIUM 50 MG/SENNA 8.6 MG TAB PO SCH (09:00)
[2017-09-09] MEDS: NITROFURANTOIN MONOHYD MACROCR 100 MG CAP PO SCH ×2 (09:00→16:52)
[2017-09-09] MEDS ORDERED: INFLUENZA VIRUS VACCINE (QUADRIVALENT) 0.5 ML SYR IM ONE (10:00)
[2017-09-09 11:30] VITALS: BP 120/59; PULSE 71; RESP 18; TEMP 98.4; O2SAT 100
[2017-09-09 15:30] VITALS: BP 116/83; PULSE 66; RESP 18; TEMP 98.4; O2SAT 100
--- NOTE | 2017-09-09 15:38 | RADRPT ---
EXAM DATE/TIME: 09/09/2017 15:13 [facility] COMPARISON: No previous studies available for comparison. INDICATIONS : Bilateral leg edema. MEDICAL HISTORY : 1 week . Bilateral leg edema. SURGICAL HISTORY : None. ENCOUNTER: Initial ACUITY: 1 day PAIN SCORE: 0/10 LOCATION: Bilateral legs. TECHNIQUE: Venous ultrasound of the left and right leg was performed from the inguinal ligament to the proximal calf. Real-time, color Doppler and spectral tracing, compression and augmentation techniques were us ed. FINDINGS: RIGHT LEG: There is normal compressibility of the deep venous system from the inguinal region to the proximal ca lf. No echogenic clot is seen in the lumen of the common femoral, femoral, popliteal, and posterior tibial veins. There is a normal response of the venous system to proximal and distal augmentation an d respiration. LEFT LEG: There is normal compressibility of the deep venous system from the inguinal region to the proximal ca lf. No echogenic clot is seen in the lumen of the common femoral, femoral, popliteal, and posterior tibial veins. There is a normal response of the venous system to proximal and distal augmentation an d respiration. CONCLUSION: Normal examination. Jaswinder Redmond MD on September 09, 2017 at 15:36 Board Certified Radiologist. This report was verified electronically.
[2017-09-09] MEDS ORDERED: ONDA4TAB7 PO (15:43)
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
--- NOTE | 2017-09-10 09:00 | EKG ---
Date Performed: 09/09/2017 Time Performed: 06:58:46 PTAGE: 26 years EKG: Sinus bradycardia with sinus arrhythmia. Septal T wave changes are nonspecific Borderline E CG PREVIOUS TRACING : 09/03/2017 12.38 DOCTOR: Salvatore Vail Interpretating Date/Time 09/10/2017 08:59:05
== END 2017-09-09 17:21 | disposition home or self-care (01) ==
LOC: NEPD 16:00 → NEDA 20:59 → NEDH 09-08 00:59 → N04B 09-08 14:22
PROVIDERS: ADMIT Family Medicine; ATTEND Family Medicine
DX: O90.89 Other complications of the puerperium, not elsewhere classified (principal); K29.00 Acute gastritis without bleeding; O86.20 Urinary tract infection following delivery, unspecified; E87.5 Hyperkalemia; E87.6 Hypokalemia; R00.1 Bradycardia, unspecified
CPT/HCPCS: 71045; 74177; 80048; 80053; 81001; 82550; 83690; 83735; 84484; 85025; 85379; 87086; 93005; 93970; 96361; 96365; 96366; 96375; 96376; 99291; C9113; G0378; J0780; J2405; J3475; J3480; J7030; Q9967